=== PATIENT | male | born 1995 | race Caucasian/White ===

== ENCOUNTER 2023-10-23 21:47 | Emergency (ER) | payer OTHER, SELFPAY ==
[2023-10-23 22:06] VITALS: BP 132/74; PULSE 77; RESP 18; TEMP 36.8; O2SAT 98; BMI 29.4
--- NOTE | 2023-10-23 22:11 | DI.RAD.S_ITS ---
PROCEDURE: XR FOOT RT MIN 3V INDICATIONS: injury TECHNIQUE: 3 views of the foot were acquired. COMPARISON: None. FINDINGS: Bones: No fractures or dislocations. No suspicious bony lesions. Soft tissues: No tibiotalar joint effusion. Achilles tendon appears normal. IMPRESSION: No acute bony abnormality. Dictated by: Mike Clinton M.D. on 10/24/2023 at 0:03 Approved by: Mike Clinton M.D. on 10/24/2023 at 0:04
--- NOTE | 2023-10-24 02:06 | ED.LOWEXIN ---
HPI - Extremity Injury (Lower) General Chief Complaint: Extremity Injury, Lower Stated Complaint: rt ankle inj/work inj Time Seen by Provider: 10/24/23 01:05 Source: patient Mode of arrival: Wheelchair History of Present Illness HPI Narrative: 28-year-old male states that he was at work and tripped over some wood pile proximally 8:00 p.m. yesterday on 10/23/2023, had pain to the lateral aspect of his right foot, unable to bear weight on this area. He denies injuries to his right foreleg, knee, thigh, hip. He denies pain to his head, neck, upper back, lower back chest, abdomen, pelvis, upper extremities, left lower extremity. He has not taking any medication to relieve the pain. He denies any other injuries. Related Data Allergies Allergy/AdvReac Type Severity Reaction Status Date / Time No Known Drug Allergies Allergy Verified 10/23/23 22:10 Review of Systems Review of Systems Narrative: see HPI Exam Narrative Exam Narrative: GENERAL: Well-developed patient, in mild distress. HEAD: Atraumatic. Normocephalic. EYES: Pupils equal round and reactive. Extraocular motions intact. No scleral icterus. No injection or drainage. ENT: Nose without bleeding, purulent drainage. Throat without erythema, tonsillar hypertrophy or exudate. Airway patent. NECK: Trachea midline. Non tender CARDIOVASCULAR: Regular rate and rhythm without murmurs, gallops, or rubs. RESPIRATORY: Clear to auscultation. Breath sounds equal bilaterally. No wheezes, rales, or rhonchi. GASTROINTESTINAL: Abdomen soft, non-tender, nondistended. EXTREMITIES: Tenderness with some swelling to the lateral aspect of the right 5th metatarsal, slight tenderness dorsum of foot. No tenderness at right lateral malleolus of the ankle, nor at the right medial malleolus of the ankle. No knee tenderness or swelling. Right foreleg tenderness or swelling. No edema or joint tenderness. BACK: Nontender without deformity or crepitance. No flank tenderness. NEURO: AOx3. SKIN: No rash or erythema of visible areas Initial Vital Signs Initial Vital Signs: Vital Signs Temperature 98.2 F 10/23/23 22:06 Pulse Rate 77 10/23/23 22:06 Respiratory Rate 18 10/23/23 22:06 Blood Pressure 132/74 10/23/23 22:06 Pulse Oximetry 98 10/23/23 22:06 Oxygen Delivery Method Room Air 10/23/23 22:06 Course Orders Ordered: ED Orders 10/23/23 22:11 XR foot RT min 3V Stat Vital Signs Vital signs: Vital Signs - 8 hr 10/23/23 22:06 10/24/23 03:07 10/24/23 03:16 Temperature 98.2 F 98.2 F Pulse Rate 77 73 95 H Respiratory Rate 18 16 16 Blood Pressure 132/74 132/84 135/78 Pulse Oximetry 98 99 98 Oxygen Delivery Method Room Air Room Air Room Air MDM - Extremity Injury (Lower) MDM Narrative Medical decision making narrative: 28-year-old male with twist injury right foot 8:00 p.m. yesterday, persisting pain lateral foot area. X-ray negative for fracture. No tenderness ankle area. Placed in walking boot, nonweightbearing with crutches for now. Follow up with Orthopedic surgery. Dr. Velazquez orthopedic surgeon contact information provided. Filled out [employer] claim [place], [id number]. Discharge Plan Departure Patient Disposition: Home Clinical Impression: Right foot strain Activity Restrictions/Additional Instructions: Right foot strain injury 8:00 p.m. last night at work, [employer] claim form filled out and submitted. X-rays negative for foot fracture. Splint and crutches advised, nonweightbearing until recheck. Follow up with Orthopedic surgery advised. Contact information for Dr. Velazquez orthopedic surgery on-call. Call if the office on Wednesday for recheck. Advised elevation of the lower extremity and not putting any weight on the right foot, with use of crutches. 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 Take Tylenol and or Motrin as needed for pain control. Return earlier for any change worsening symptoms or any concerns prior [employer] forms filled out, [id number] Referrals: Sania Torrez MD [Physician] - Stand Alone Forms: Patient Portal/API
[2023-10-24 03:07] VITALS: BP 132/84; PULSE 73; RESP 16; O2SAT 99
[2023-10-24 03:16] VITALS: BP 135/78; PULSE 95; RESP 16; TEMP 36.8; O2SAT 98
== END 2023-10-24 03:17 | disposition home or self-care (01) ==
PROVIDERS: Emergency Provider Emergency Medicine
DX: S96.911A Strain of unspecified muscle and tendon at ankle and foot level, right foot, initial encounter (principal); W18.09XA Striking against other object with subsequent fall, initial encounter; Y99.0 Civilian activity done for income or pay
CPT/HCPCS: 73630; 99282; 99283

== ENCOUNTER → 2024-04-18 14:42 | Outpatient (CLI) | payer OTHER, SELFPAY ==
[2024-04-18 15:29] LABS: Add Manual Diff / Slide Review NO; Basophils Absolute Auto 100 /uL (0-100); Basophils Percent Auto 0.6 % (0-2); Eosinophils Absolute Auto 200 /uL (0-450); Eosinophils Percent Auto 1.7 % (2-4); Hematocrit 44.5 % (41-53); Hemoglobin 15.3 g/dL (13.5-17.5); Lymphocytes Absolute Auto 2600 /uL (1100-4500); Lymphocytes Percent Auto 24.1 % (25-40); Mean Corpuscular HGB Conc 34.4 % (30-36); Mean Corpuscular Hemoglobin 28.1 PG (26-34); Mean Corpuscular Volume 81.8 fL (80-100); Monocytes Absolute Auto 1000 /uL (0-900); Monocytes Percent Auto 9.8 % (3-14); Neutrophils Absolute Auto 6800 /uL (1500-7000); Neutrophils Percent Auto 63.8 % (50-75); Platelet Count 310 X10^3/uL (150-400); Red Blood Cell Count 5.44 X10^6/uL (4.5-5.9); Red Cell Distribution Width 13.5 % (11.6-14.8); White Blood Cell Count 10.6 X10^3/uL (4.5-11.0)
[2024-04-18 16:03] LABS: Alanine Aminotransferase 22 IU/L (<50); Albumin 4.6 g/dL (3.5-5.0); Albumin Globulin Ratio 1.8 (1.0-2.8); Alkaline Phosphatase 57 U/L (38-126); Aspartate Aminotransferase 28 IU/L (17-59); BUN Creatinine Ratio 24.3 (6-22); Bilirubin Total 0.7 mg/dL (0.2-1.3); Blood Urea Nitrogen 18 mg/dL (9-20); Calcium 9.3 mg/dL (8.4-10.2); Carbon Dioxide 28 mmol/L (22-32); Chloride 106 mmol/L (98-107); Estimated Glomerular Filt Rate > 60 mL/min (>60); Globulin 2.5 g/dL (1.7-4.1); Glucose 88 mg/dL (70-100); HEMOLYSIS < 15 (0-50); Potassium 4.6 mmol/L (3.4-5.1); Sodium 140 mmol/L (137-145); Total Protein 7.1 g/dL (6.3-8.2)
[2024-04-18 16:32] LABS: TSH w/ Reflex to FT4 0.68 uIU/mL (0.47-4.68)
[2024-04-22 19:38] LABS: HIV 1 RNA Non Reactive (Non Reactive); HIV 2 RNA Non Reactive (Non Reactive)
== END ==
PROVIDERS: PCP Family Medicine; Referring Provider Family Medicine; Visit Provider Family Medicine
DX: R63.4 Abnormal weight loss (principal); F10.90 Alcohol use, unspecified, uncomplicated
CPT/HCPCS: 36415; 80053; 83036; 84443; 85025; 87535; 87538